=== PATIENT | female | born 1965 | race Caucasian/White ===

== ENCOUNTER → 2022-08-25 | Outpatient (CLI) | payer OTHER ==
[2022-08-26 15:10] LABS: HPV 16 Negative (Negative); HPV 18 Negative (Negative); HPV OTHER HR TYPES Negative (Negative)
== END | disposition home or self-care (01) ==
LOC: LAB 09:24 → LAB SHORT 09:24
PROVIDERS: Family Medicine
DX: Z01.419 Encounter for gynecological examination (general) (routine) without abnormal findings (principal)
CPT/HCPCS: 87624; G0123

== ENCOUNTER 2023-03-19 07:05 | Day surgery (SDC) | payer OTHER ==
[~2023-03-19] VITALS: Ht 167.6 cm; Wt 92.5 kg
[~2023-03-19 07:05] MED LIST: ACET500 PO; ALLEGRA ALLERG180 MG PO; ALORA TOP; Apple Cider Vi300 MG PO; Byetta10 MCG/0.0 SC; CINNAMON EXTRA500 MG PO; CYCL10 PO; Crestor20 MG PO; Flonase 0.05% N16 GM; GLUCOPHAGE1000 M1 PO; HAIR, SKIN AND1 EAC3; HAIR, SKIN AND1 EAC3 PO; IBUP600 PO; LEVSOD100 PO; MONT10T PO; PROG100 PO; TURMERIC500 M2 PO; VENLAFAXINE HC225 MG PO; [UNRECOGNIZED DRUG - OTHER] PO; [UNRECOGNIZED DRUG - OTHER] PO
--- NOTE | 2023-03-19 07:06 | NUR ---
03/19/23 [address] BULL. SEE ANESTHESIA RECORDS.
[2023-03-19 07:52] VITALS: BP 151/79
[2023-03-19 09:48] VITALS: BP 99/61
[2023-03-19 10:00] VITALS: BP 128/65
[2023-03-19 10:19] VITALS: BP 152/73
[2023-03-19 10:32] VITALS: BP 148/72
--- NOTE | 2023-03-19 10:45 | NUR ---
Discharge instructions reviewed with patient. Patient verbalizes understanding. Copy given to patient to take home. VSS. Gait steady. C/o /10 cramping pain to abdomen post-procedure. Tolerating crackers and PO fluid. Ride home arranged with [employer]. Dr. Douglas agrees with transportation plan. Patient agrees to follow-up with general surgeron per Dr. Douglas.
== END 2023-03-19 10:43 | disposition home or self-care (01) ==
LOC: ORSCMMR 07:05 → ORD 08:45 → ORSCMMR 10:43
PROVIDERS: Student in an Organized Health Care Education/Training Program
PROC: 0DBL8ZX Excision of Transverse Colon, Via Natural or Artificial Opening Endoscopic, Diagnostic (ICD-10-PCS; principal; 2023-03-19 08:45)
DX: Z12.11 Encounter for screening for malignant neoplasm of colon (principal); D12.3 Benign neoplasm of transverse colon; D37.5 Neoplasm of uncertain behavior of rectum; K57.30 Diverticulosis of large intestine without perforation or abscess without bleeding; K64.8 Other hemorrhoids; G47.33 Obstructive sleep apnea (adult) (pediatric); E11.9 Type 2 diabetes mellitus without complications; Z79.84 Long term (current) use of oral hypoglycemic drugs; Z79.899 Other long term (current) drug therapy; I10 Essential (primary) hypertension; E78.5 Hyperlipidemia, unspecified; F31.9 Bipolar disorder, unspecified
CPT/HCPCS: 82947; 88305; J2704; J7120